=== PATIENT | male | born 1995 | race Caucasian/White ===

== ENCOUNTER 2017-02-25 22:38 | Emergency (ER) | payer OTHER ==
[~2017-02-25] VITALS: Ht 175.3 cm; Wt 77.5 kg
[2017-02-25 22:39] VITALS: BP 123/59
== END 2017-02-26 02:30 | disposition left against medical advice (07) ==
LOC: M ED 22:38
DX: Z53.29 Procedure and treatment not carried out because of patient's decision for other reasons (principal)